=== PATIENT | male | born 1945 | race Caucasian/White ===

== ENCOUNTER 2017-09-05 17:53 | Inpatient (IN) | payer OTHER, MEDICARE ==
[~2017-09-05] VITALS: Ht 167.6 cm; Wt 96.7 kg
[2017-09-05] MEDS ORDERED: DIPHTH/TETANUS/ACEL PERTUSSIS (BOOSTER) 0.5 ML VIAL/PFS IM ONE (18:09)
[2017-09-05 18:10] VITALS: O2SAT 99
[2017-09-05 18:21] LABS: BASOPHIL # 0.1 TH/MM3 (0-0.2); BASOPHIL % 0.7 % (0.0-2.0); EOSINOPHIL # 0.2 TH/MM3 (0-0.4); EOSINOPHIL % 2.2 % (0.0-4.0); HEMATOCRIT 35.9 % (39.0-51.0); HEMOGLOBIN 12.1 GM/DL (13.0-17.0); LYMPH % 20.8 % (9.0-44.0); LYMPHOCYTE # 1.8 TH/MM3 (1.0-4.8); MEAN CELL VOLUME 91.6 FL (80.0-100.0); MEAN CORPUSCULAR HEMOGLOBIN 30.9 PG (27.0-34.0); MEAN CORPUSCULAR HGB CONC 33.7 % (32.0-36.0); MEAN PLATELET VOLUME 9.9 FL (7.0-11.0); MONO % 6.1 % (0.0-8.0); MONOCYTE # 0.5 TH/MM3 (0-0.9); NEUT % 70.2 % (16.0-70.0); PLATELET COUNT 165 TH/MM3 (150-450); RED BLOOD COUNT 3.92 MIL/MM3 (4.50-5.90); RED CELL DISTRIBUTION WIDTH 14.5 % (11.6-17.2); WHITE BLOOD COUNT 8.5 TH/MM3 (4.0-11.0)
[2017-09-05] MEDS ORDERED: IOHEXOL 350 MG/ML 10 ML VIAL (for RAD DIAG) IVCONTRAST ONE (18:31)
[2017-09-05 18:35] LABS: PROTHROMBIN TIME - PATIENT 10.2 SEC (9.8-11.6)
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
[2017-09-05 18:49] VITALS: BP 103/55; PULSE 82; RESP 16; O2SAT 98
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
[2017-09-05] MEDS ORDERED: BP med PO (18:55)
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
[2017-09-05] MEDS ORDERED: LIDOCAINE 1%/EPINEPHrine 1:100,000 SOLN 20 ML VIAL INFIL ONE (19:45)
[2017-09-05] MEDS ORDERED: LIDOCAINE 1%/EPINEPHrine 1:100,000 SOLN 50 ML VIAL ONE (19:50)
[2017-09-05 21:00] VITALS: BP 147/56; PULSE 80; RESP 16; O2SAT 98
[2017-09-05 22:00] VITALS: BP 137/69; PULSE 84; RESP 16; TEMP 98.2; O2SAT 99
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
[2017-09-05] MEDS ORDERED: NALOXONE HCL 0.4 MG/ML AMP IV PUSH PRN (23:00)
[2017-09-05] MEDS ORDERED: hydrALAZINE HCL 20 MG/ML VIAL IV PUSH PRN (23:00)
[2017-09-05] MEDS ORDERED: 1/2 NS + KCL 20 MEQ INJ 1,000 ML IV SCH (23:00)
[2017-09-06] VITALS (13 sets, daily range): BP systolic 111–153; BP diastolic 59–70; PULSE 64–89; RESP 11–18; TEMP 98–98.5; O2SAT 97–100
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
[2017-09-06] MEDS ORDERED: LACTATED RINGER'S 1000 ML INJ 1,000 ML IV ONE (02:45)
[2017-09-06] MEDS ORDERED: ONDANSETRON HCL 4 MG/2 ML VIAL IV PUSH PRN (02:45)
[2017-09-06] MEDS: LACTATED RINGER'S 1000 ML INJ 1,000 ML IV SCH ×3 (02:54→18:45)
[2017-09-06] MEDS: OCTREOTIDE INJ 500 MCG in SODIUM CHLORID 0.9% 500 ML INJ 499.5 ML IV SCH ×2 (02:55→21:50)
[2017-09-06] MEDS ORDERED: OCTREOTIDE INJ 50 MCG/ML AMP IV PUSH ONE (03:00)
[2017-09-06] MEDS: PANTOPRAZOLE SODIUM 40 MG VIAL IV PUSH SCH ×2 (03:01→15:15)
[2017-09-06] MEDS ORDERED: PROMETHAZINE INJ 25 MG/ML VIAL IM ONE (03:15)
[2017-09-06 04:38] LABS: AUTOMATED NEUTROPHIL # 14.1 TH/MM3 (1.8-7.7); BASOPHIL % 0.2 % (0.0-2.0); EOSINOPHIL % 0.1 % (0.0-4.0); HEMATOCRIT 36.5 % (39.0-51.0); LYMPH % 2.9 % (9.0-44.0); LYMPHOCYTE # 0.4 TH/MM3 (1.0-4.8); MEAN CELL VOLUME 90.8 FL (80.0-100.0); MEAN CORPUSCULAR HEMOGLOBIN 29.8 PG (27.0-34.0); MEAN CORPUSCULAR HGB CONC 32.8 % (32.0-36.0); MEAN PLATELET VOLUME 10.1 FL (7.0-11.0); MONO % 5.6 % (0.0-8.0); MONOCYTE # 0.9 TH/MM3 (0-0.9); NEUT % 91.2 % (16.0-70.0); PLATELET COUNT 179 TH/MM3 (150-450); RED BLOOD COUNT 4.02 MIL/MM3 (4.50-5.90); RED CELL DISTRIBUTION WIDTH 14.4 % (11.6-17.2); WHITE BLOOD COUNT 15.5 TH/MM3 (4.0-11.0)
[2017-09-06 05:04] LABS: BICARBONATE 19.6 MEQ/L (21.0-32.0); CALCIUM 8.1 MG/DL (8.5-10.1); CREATININE 1.14 MG/DL (0.60-1.30); MAGNESIUM 1.5 MG/DL (1.5-2.5); PHOSPHORUS 2.8 MG/DL (2.5-4.9)
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
[2017-09-06] MEDS ORDERED: PHENYLEPH/NS 1000 MCG/10 ML SYR IV ONE (12:00)
[2017-09-06] MEDS ORDERED: LIDOCAINE HCL 1% PF 5 ML SYRINGE OTHER ONE (12:00)
[2017-09-06] MEDS ORDERED: SUCCINYLCHOLINE CHLORIDE 100 MG/5 ML SYRINGE IV PUSH ONE (12:00)
[2017-09-06] MEDS ORDERED: PROPOFOL 200 MG/20 ML AMP IV ONE (12:00)
[2017-09-06] MEDS: METOCLOPRAMIDE HCL 10 MG/2 ML VIAL IV PUSH SCH ×2 (15:15→20:12)
[2017-09-06] MEDS: HYDROmorphone HCL PF 0.5 MG/0.5 ML SYRINGE IV PUSH PRN ×2 (15:15→18:18)
[2017-09-07] VITALS (12 sets, daily range): BP systolic 122–167; BP diastolic 60–80; PULSE 52–80; RESP 12–24; TEMP 98.2–98.9; O2SAT 94–99
[2017-09-07] MEDS: ACETAMINOPHEN/HYDROcodone 325 MG/10 MG TAB PO PRN ×3 (03:17→16:00)
[2017-09-07] MEDS: PANTOPRAZOLE SODIUM 40 MG VIAL IV PUSH SCH ×2 (03:18→15:59)
[2017-09-07] MEDS: LACTATED RINGER'S 1000 ML INJ 1,000 ML IV SCH ×3 (03:18→21:42)
[2017-09-07] MEDS: METOCLOPRAMIDE HCL 10 MG/2 ML VIAL IV PUSH SCH ×3 (04:39→21:42)
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
[2017-09-07] MEDS ORDERED: NADOLOL 20 MG TAB PO SCH (16:30)
[2017-09-07] MEDS: OCTREOTIDE INJ 500 MCG in SODIUM CHLORID 0.9% 500 ML INJ 499.5 ML IV SCH (18:24)
[2017-09-07] MEDS: HYDROmorphone HCL PF 0.5 MG/0.5 ML SYRINGE IV PUSH PRN (23:42)
[2017-09-08] VITALS (8 sets, daily range): BP systolic 140–183; BP diastolic 70–81; PULSE 49–61; RESP 13–21; TEMP 98.1–98.7; O2SAT 95–100
[2017-09-08] MEDS: PANTOPRAZOLE SODIUM 40 MG VIAL IV PUSH SCH ×2 (03:36→16:00)
[2017-09-08] MEDS: HYDROmorphone HCL PF 0.5 MG/0.5 ML SYRINGE IV PUSH PRN (03:37)
[2017-09-08] MEDS: LACTATED RINGER'S 1000 ML INJ 1,000 ML IV SCH ×2 (03:38→12:46)
[2017-09-08 04:56] LABS: HEMATOCRIT 29.6 % (39.0-51.0); MEAN CELL VOLUME 90.5 FL (80.0-100.0); MEAN CORPUSCULAR HEMOGLOBIN 30.7 PG (27.0-34.0); MEAN CORPUSCULAR HGB CONC 33.9 % (32.0-36.0); MEAN PLATELET VOLUME 10.1 FL (7.0-11.0); PLATELET COUNT 145 TH/MM3 (150-450); RED BLOOD COUNT 3.27 MIL/MM3 (4.50-5.90); RED CELL DISTRIBUTION WIDTH 13.6 % (11.6-17.2); WHITE BLOOD COUNT 6.6 TH/MM3 (4.0-11.0)
[2017-09-08 05:51] LABS: ALBUMIN 2.4 GM/DL (3.4-5.0); ALKALINE PHOSPHATASE 48 U/L (45-117); ALT (GPT) 18 U/L (12-78); AST (GOT) 30 U/L (15-37); BICARBONATE 26.6 MEQ/L (21.0-32.0); BLOOD UREA NITROGEN 17 MG/DL (7-18); CALCIUM 7.9 MG/DL (8.5-10.1); CHLORIDE 109 MEQ/L (98-107); CREATININE 0.91 MG/DL (0.60-1.30); GLOMERULAR FILTRATION RATE 82 ML/MIN (>89); GLUCOSE,RANDOM 103 MG/DL (74-106); SODIUM (NA) 142 MEQ/L (136-145); TOTAL BILIRUBIN ADULT 0.5 MG/DL (0.2-1.0); TOTAL PROTEIN 5.1 GM/DL (6.4-8.2)
[2017-09-08] MEDS: METOCLOPRAMIDE HCL 10 MG/2 ML VIAL IV PUSH SCH ×3 (06:22→21:31)
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
[2017-09-08] MEDS ORDERED: hydrALAZINE HCL 100 MG TAB PO PRN (08:45)
[2017-09-08] MEDS: hydrALAZINE HCL 50 MG TAB PO SCH ×3 (08:59→21:31)
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
[2017-09-09] VITALS: BP 145/77; PULSE 72; RESP 14; TEMP 98.7; O2SAT 96
[2017-09-09] MEDS: LACTATED RINGER'S 1000 ML INJ 1,000 ML IV SCH (03:20)
[2017-09-09] MEDS: PANTOPRAZOLE SODIUM 40 MG VIAL IV PUSH SCH ×2 (03:20→16:15)
[2017-09-09 04:00] VITALS: BP 163/70; PULSE 60; RESP 17; TEMP 98.4; O2SAT 99
[2017-09-09 06:14] LABS: AUTOMATED NEUTROPHIL # 3.7 TH/MM3 (1.8-7.7); BASOPHIL % 0.9 % (0.0-2.0); EOSINOPHIL # 0.2 TH/MM3 (0-0.4); EOSINOPHIL % 3.9 % (0.0-4.0); HEMATOCRIT 27.1 % (39.0-51.0); HEMOGLOBIN 9.1 GM/DL (13.0-17.0); LYMPH % 15.3 % (9.0-44.0); LYMPHOCYTE # 0.8 TH/MM3 (1.0-4.8); MEAN CELL VOLUME 90.2 FL (80.0-100.0); MEAN CORPUSCULAR HEMOGLOBIN 30.3 PG (27.0-34.0); MEAN CORPUSCULAR HGB CONC 33.6 % (32.0-36.0); MEAN PLATELET VOLUME 9.6 FL (7.0-11.0); MONO % 11.6 % (0.0-8.0); MONOCYTE # 0.6 TH/MM3 (0-0.9); NEUT % 68.3 % (16.0-70.0); PLATELET COUNT 138 TH/MM3 (150-450); RED BLOOD COUNT 3.01 MIL/MM3 (4.50-5.90); RED CELL DISTRIBUTION WIDTH 13.5 % (11.6-17.2); WHITE BLOOD COUNT 5.4 TH/MM3 (4.0-11.0)
[2017-09-09] MEDS: hydrALAZINE HCL 50 MG TAB PO SCH (06:30)
[2017-09-09] MEDS: METOCLOPRAMIDE HCL 10 MG/2 ML VIAL IV PUSH SCH (06:31)
[2017-09-09 06:42] LABS: ALBUMIN 2.2 GM/DL (3.4-5.0); BICARBONATE 24.1 MEQ/L (21.0-32.0); BLOOD UREA NITROGEN 14 MG/DL (7-18); CALCIUM 7.8 MG/DL (8.5-10.1); CHLORIDE 109 MEQ/L (98-107); CREATININE 0.73 MG/DL (0.60-1.30); GLOMERULAR FILTRATION RATE 106 ML/MIN (>89); GLUCOSE,RANDOM 82 MG/DL (74-106); SODIUM (NA) 142 MEQ/L (136-145)
[2017-09-09 06:43] LABS: ALT (GPT) 16 U/L (12-78); AST (GOT) 27 U/L (15-37)
[2017-09-09 06:45] LABS: ALKALINE PHOSPHATASE 64 U/L (45-117); TOTAL BILIRUBIN ADULT 0.6 MG/DL (0.2-1.0); TOTAL PROTEIN 4.4 GM/DL (6.4-8.2)
[2017-09-09 08:00] VITALS: BP 160/76; PULSE 45; RESP 10; TEMP 98.8; O2SAT 100
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
[2017-09-09 12:00] VITALS: BP 165/72; PULSE 52; RESP 18; TEMP 98.4; O2SAT 95
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
[2017-09-09 16:00] VITALS: BP 132/63; PULSE 50; RESP 12; TEMP 99.3; O2SAT 98
[2017-09-09 20:00] VITALS: BP 183/78; PULSE 50; RESP 24; TEMP 98.9; O2SAT 98
[2017-09-09] MEDS: ENALAPRILAT 1.25 MG/ML VIAL IV PUSH PRN (20:58)
[2017-09-10] VITALS (7 sets, daily range): BP systolic 134–186; BP diastolic 64–87; PULSE 40–62; RESP 11–20; TEMP 98.3–98.9; O2SAT 96–98
[2017-09-10] MEDS: cloNIDine HCL 0.1 MG TAB PO PRN ×2 (00:20→09:29)
[2017-09-10] MEDS: PANTOPRAZOLE SODIUM 40 MG VIAL IV PUSH SCH ×2 (04:13→15:03)
[2017-09-10 05:19] LABS: BASOPHIL % 0.7 % (0.0-2.0); EOSINOPHIL # 0.2 TH/MM3 (0-0.4); EOSINOPHIL % 3.8 % (0.0-4.0); HEMATOCRIT 32.4 % (39.0-51.0); HEMOGLOBIN 10.9 GM/DL (13.0-17.0); LYMPH % 17.2 % (9.0-44.0); MEAN CELL VOLUME 89.7 FL (80.0-100.0); MEAN CORPUSCULAR HEMOGLOBIN 30.3 PG (27.0-34.0); MEAN CORPUSCULAR HGB CONC 33.8 % (32.0-36.0); MONOCYTE # 0.6 TH/MM3 (0-0.9); NEUT % 67.3 % (16.0-70.0); PLATELET COUNT 156 TH/MM3 (150-450); RED BLOOD COUNT 3.61 MIL/MM3 (4.50-5.90); RED CELL DISTRIBUTION WIDTH 13.8 % (11.6-17.2); WHITE BLOOD COUNT 5.9 TH/MM3 (4.0-11.0)
[2017-09-10 05:50] LABS: ALBUMIN 2.7 GM/DL (3.4-5.0); AST (GOT) 18 U/L (15-37); BICARBONATE 25.2 MEQ/L (21.0-32.0); BLOOD UREA NITROGEN 19 MG/DL (7-18); CALCIUM 8.1 MG/DL (8.5-10.1); CHLORIDE 109 MEQ/L (98-107); CREATININE 1.06 MG/DL (0.60-1.30); GLOMERULAR FILTRATION RATE 69 ML/MIN (>89); GLUCOSE,RANDOM 92 MG/DL (74-106); SODIUM (NA) 143 MEQ/L (136-145)
[2017-09-10 05:51] LABS: ALT (GPT) 18 U/L (12-78)
[2017-09-10 05:53] LABS: ALKALINE PHOSPHATASE 53 U/L (45-117); TOTAL BILIRUBIN ADULT 0.6 MG/DL (0.2-1.0); TOTAL PROTEIN 5.4 GM/DL (6.4-8.2)
[2017-09-10] MEDS: ACETAMINOPHEN/HYDROcodone 325 MG/10 MG TAB PO PRN (08:52)
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
[2017-09-10] MEDS: ACETAMINOPHEN/HYDROcodone 325 MG/5 MG TAB PO PRN ×2 (15:03→19:20)
--- NOTE | 2017-09-10 23:29 | HHI.NSPN ---
History Chief Complaint: Left arm and wrist pain Interval History 09/10/2017: Patient had reported fall early this morning. Complains of left shoulder arm wrist pain. Exam Results Vital Signs Date Time Temp Pulse Resp B/P (MAP) Pulse Ox O2 Delivery O2 Flow Rate FiO2 09/10/17 20:20 15 09/10/17 20:00 98.5 62 134/64 (87) 98 09/10/17 19:00 Room Air 09/07/17 08:14 21 09/06/17 20:19 2.00 Intake and Output 09/10/17 09/10/17 09/11/17 08:00 16:00 00:00 Intake Total 120 ml 240 ml Output Total 300 ml Balance -180 ml 240 ml Physical Examination Awake and alert Baseline expressive speech deficit Follow simple commands well Positive discomfort left shoulder wrist forearm with active and passive range of motion. Has some weakness left biceps triceps hand grasp and intrinsics although complains of significant discomfort with testing. Guthrie's response absent bilateral No ankle clonus Lab, Micro, Other Results Last 48 hours Impressions Cervical Spine CT 09/10/17 0908 Signed Impressions: CONCLUSION: 1. Stable appearance of the recent left C7 transverse process fracture. 2. No acute fracture or malalignment. 3. Degenerative changes. Radius/Ulna X-Ray 09/10/17 0833 Signed Impressions: CONCLUSION: 1. The radius and ulna are intact. 2. Extensive soft tissue swelling over the olecranon. The elbow appears grossl y intact. If further concern for elbow injury exists then a standard 4 view tra rigoberto elbow series would be recommended. Head CT 09/10/17 0000 Signed Impressions: CONCLUSION: 1. No acute hemorrhage or mass effect. 2. Extensive postsurgical changes and encephalomalacia as well as atrophic lisset nge. Medical Decision Making Impression and Plan Impression: Stable C7 transverse process fracture No definite new cervical spine fracture or upper extremity fracture following fall earlier on 09/10/2017 Plan: Continue therapy Continue collar Transfer bed pending Rodney Boateng MD September 10, 2017 23:29
[2017-09-11] VITALS: BP 148/70; PULSE 48; RESP 14; TEMP 98.8; O2SAT 96
[2017-09-11] MEDS: ACETAMINOPHEN/HYDROcodone 325 MG/5 MG TAB PO PRN ×3 (01:11→14:10)
[2017-09-11] MEDS: PANTOPRAZOLE SODIUM 40 MG VIAL IV PUSH SCH ×2 (03:59→16:41)
[2017-09-11 04:00] VITALS: BP 160/75; PULSE 48; RESP 12; TEMP 98.2; O2SAT 95
[2017-09-11 08:00] VITALS: BP 179/84; PULSE 52; RESP 22; TEMP 98.9; O2SAT 98
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
[2017-09-11 12:00] VITALS: BP 170/78; PULSE 52; RESP 12; TEMP 98.4
[2017-09-11] MEDS: ENALAPRILAT 1.25 MG/ML VIAL IV PUSH PRN (14:28)
[2017-09-11 16:00] VITALS: BP 173/77; PULSE 52; RESP 20; TEMP 98.5
[2017-09-11 20:00] VITALS: BP 179/84; PULSE 52; PULSE 69; RESP 22; TEMP 98.9; O2SAT 98
--- NOTE | 2017-09-11 20:49 | HHI.NSPN ---
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 He is noticing some weakness in the left upper extremity. Exam Results Vital Signs Date Time Temp Pulse Resp B/P (MAP) Pulse Ox O2 Delivery O2 Flow Rate FiO2 09/11/17 16:00 98.5 52 20 173/77 (109) 09/11/17 08:00 98 09/11/17 07:00 Room Air 09/07/17 08:14 21 Intake and Output 09/11/17 09/11/17 09/12/17 08:00 16:00 00:00 Intake Total 120 ml 240 ml Output Total 300 ml 300 ml Balance -180 ml -60 ml Physical Examination Awake and alert Baseline expressive speech deficit Follow simple commands well Positive discomfort left shoulder wrist forearm with active and passive range of motion. He is moving the left arm and forearm and hand a little bit better today with decreased pain. However he appears to have increased weakness distal left upper extremity. On today's examination left deltoid and biceps 5/5 with discomfort. Left triceps wrist flexors and extensors are 0-1/5 with hand intrinsics 1/5, flexor digitorum superficialis and profundus 2/5 Guthrie's response absent bilateral No ankle clonus Medical Decision Making Impression and Plan Impression: Stable C7 transverse process fracture No definite new cervical spine fracture or upper extremity fracture following fall earlier on 09/10/2017 Examination 09/11/2017 reveals significant new left upper extremity motor deficit. Plan: Discussed with the patient's daughter in [facility] on 09/11/2017. Patient has less pain on examination of the left upper extremity today, but examination is now revealing significant increased motor deficit. The deficit includes but is not limited to the C7 distribution. He does continue to have significant swelling at the left olecranon. Possible ulnar nerve contusion. Cannot totally rule out brachial plexopathy or spinal cord contusion at this point. CVA less likely. Need to proceed with MRI of the cervical spine, left shoulder and brachial plexus and brain. Continue therapy Continue collar Transfer bed pending Rodney Boateng MD September 11, 2017 20:49
[2017-09-11] MEDS: ACETAMINOPHEN/HYDROcodone 325 MG/10 MG TAB PO PRN (21:13)
[2017-09-12] VITALS: BP 182/84; PULSE 52; RESP 13; TEMP 99.3; O2SAT 94
[2017-09-12] MEDS: ENALAPRILAT 1.25 MG/ML VIAL IV PUSH PRN ×2 (00:42→07:41)
[2017-09-12] MEDS: cloNIDine HCL 0.1 MG TAB PO PRN ×3 (01:53→16:20)
[2017-09-12 04:00] VITALS: BP 173/82; PULSE 52; RESP 13; TEMP 98.3; O2SAT 94
[2017-09-12] MEDS: PANTOPRAZOLE SODIUM 40 MG VIAL IV PUSH SCH ×3 (05:34→16:19)
[2017-09-12 08:00] VITALS: BP 214/88; PULSE 62; RESP 20; TEMP 98.5; O2SAT 97
[2017-09-12] MEDS: ACETAMINOPHEN/HYDROcodone 325 MG/5 MG TAB PO PRN (11:40)
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
[2017-09-12 12:00] VITALS: BP 178/84; PULSE 63; RESP 18; TEMP 98.5; O2SAT 99
[2017-09-12] MEDS ORDERED: LISINOPRIL 20 MG TAB PO ONE (12:00)
--- NOTE | 2017-09-12 15:11 | RADRPT ---
EXAM DATE: 09/12/2017 3:08 PM EDT AGE/SEX: 72 years / Male INDICATIONS: Right wrist pain. CLINICAL DATA: This is the patient's initial encounter. Patient reports that signs and symptoms have been present for 1 week and indicates a pain score of 6/10. MEDICAL/SURGICAL HISTORY: . stroke None. COMPARISON: No prior [place] exams available for comparison. FINDINGS: Bony structures are intact and in normal alignment. Joints are intact without dislocation or signifi cant arthropathy. Osseous density is normal. Moderate vascular calcifications are evident. Soft tiss ues are unremarkable. No radiopaque foreign bodies seen. CONCLUSION: Negative for fracture. Moderate vascular calcifications. Electronically signed by: Sarmad Jesus MD 09/12/2017 3:10 PM EDT
--- NOTE | 2017-09-12 15:14 | RADRPT ---
EXAM DATE: 09/12/2017 3:02 PM EDT AGE/SEX: 72 years / Male INDICATIONS: Left wrist pain. CLINICAL DATA: This is the patient's initial encounter. Patient reports that signs and symptoms have been present for 1 week and indicates a pain score of 6/10. MEDICAL/SURGICAL HISTORY: . stroke None. COMPARISON: No prior [place] exams available for comparison. FINDINGS: Bony structures are intact and in normal alignment. Joints are intact without dislocation or signifi cant arthropathy. Osseous density is normal mild degenerative changes at the first carpometacarpal j oint.. Moderate vascular calcic locations are noted. Soft tissues are unremarkable. No radiopaque fo reign bodies seen. CONCLUSION: Negative for fracture. Moderate degenerative changes. Moderate vascular calcifications. Electronically signed by: Sarmad Jesus MD 09/12/2017 3:13 PM EDT
[2017-09-12 16:00] VITALS: BP 196/86; PULSE 64; RESP 16; TEMP 97.8; O2SAT 98
[2017-09-12] MEDS: ACETAMINOPHEN/HYDROcodone 325 MG/10 MG TAB PO PRN (16:27)
[2017-09-12 20:00] VITALS: BP 148/70; PULSE 65; RESP 18; TEMP 98.2; O2SAT 97
--- NOTE | 2017-09-12 23:30 | HHI.NSPN ---
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 He is noticing some weakness in the left upper extremity. 09/12/2017: Persistent left upper extremity motor deficit. Unable to obtain MRI because of previous aneurysm clipping. Exam Results Vital Signs Date Time Temp Pulse Resp B/P (MAP) Pulse Ox O2 Delivery O2 Flow Rate FiO2 09/12/17 20:00 98.2 65 18 148/70 (96) 97 09/12/17 07:00 Room Air Intake and Output 09/12/17 09/12/17 09/13/17 08:00 16:00 00:00 Intake Total 180 ml 240 ml Output Total 250 ml Balance 180 ml -10 ml Physical Examination Awake and alert Baseline expressive speech deficit Follow simple commands well Positive discomfort left shoulder wrist forearm with active and passive range of motion. Motor function: Left deltoid and biceps 5/5 with discomfort. Left triceps wrist flexors and extensors are 0-1/5 with hand intrinsics 1/5, flexor digitorum superficialis and profundus 2/5 Guthrie's response absent bilateral No ankle clonus Medical Decision Making Impression and Plan Impression: Stable C7 transverse process fracture No definite new cervical spine fracture or upper extremity fracture following fall earlier on 09/10/2017 Examination 09/11/2017 revealed significant new left upper extremity motor deficit. Plan: Due to inability to obtain MRI of the cervical spine and brachial plexus due to previous aneurysm clipping, need to consider myelogram CT scan cervical spine. Follow-up CT scan head over the weekend to reevaluate for possible CVA. 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 Still with significant left shoulder pain. Brachial plexopathy remains a possibility. Rodney Boateng MD Sep 12, 2017 23:30
[2017-09-12] MEDS ORDERED: LACTATED RINGER'S 1000 ML INJ 1,000 ML IV SCH (23:31)
[2017-09-12] MEDS ORDERED: DIAZEPAM 5 MG TAB PO SCH (23:45)
[2017-09-13] VITALS: BP 130/60; PULSE 59; RESP 18; TEMP 99.6; O2SAT 96
[2017-09-13] MEDS: PANTOPRAZOLE SODIUM 40 MG VIAL IV PUSH SCH ×2 (04:25→16:29)
[2017-09-13] MEDS: ACETAMINOPHEN/HYDROcodone 325 MG/10 MG TAB PO PRN ×3 (05:12→21:23)
[2017-09-13 08:00] VITALS: BP 173/74; PULSE 58; RESP 15; TEMP 97.7; O2SAT 99
[2017-09-13] MEDS: LISINOPRIL 20 MG TAB PO SCH (08:33)
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
--- NOTE | 2017-09-13 11:23 | HHI.NSPN ---
History Interval History Patient reports no change. Offers no complaints Exam Results Vital Signs Date Time Temp Pulse Resp B/P (MAP) Pulse Ox O2 Delivery O2 Flow Rate FiO2 09/13/17 08:00 97.7 58 15 173/74 (107) 99 09/12/17 07:00 Room Air Intake and Output 09/13/17 09/13/17 09/14/17 08:00 16:00 00:00 Intake Total 240 ml 1000 ml Balance 240 ml 1000 ml Physical Examination Patient is alert and awake. Has an expressive aphasia Remains in a [place] J collar. Weakness of the left arm especially distally in the hand Lab, Micro, Other Results CT of the head reviewed no new changes Medical Decision Making Impression and Plan Continued weakness of the left upper extremity especially distally Plan as per Evan Liu MD Sep 13, 2017 11:22
[2017-09-13 12:00] VITALS: BP 161/74; PULSE 61; RESP 16; TEMP 98.3; O2SAT 96
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
[2017-09-13] MEDS ORDERED: PILL SPLITTER OTHER PRN (12:45)
[2017-09-13] MEDS: amLODIPine BESYLATE 5 MG TAB PO SCH (12:53)
[2017-09-13 16:00] VITALS: BP 163/72; PULSE 56; RESP 17; TEMP 98; O2SAT 98
[2017-09-13] MEDS: BACLOFEN 10 MG TAB PO SCH ×2 (16:28→21:23)
[2017-09-13 19:55] VITALS: BP 170/75; PULSE 60; RESP 18; TEMP 98.2; O2SAT 97
[2017-09-13] MEDS: cloNIDine HCL 0.1 MG TAB PO PRN (21:23)
[2017-09-14] VITALS (7 sets, daily range): BP systolic 136–182; BP diastolic 64–84; PULSE 53–63; RESP 16–18; TEMP 97.1–98.6; O2SAT 96–99
[2017-09-14] MEDS: PANTOPRAZOLE SODIUM 40 MG VIAL IV PUSH SCH ×2 (04:17→16:04)
[2017-09-14] MEDS: ACETAMINOPHEN/HYDROcodone 325 MG/10 MG TAB PO PRN (04:18)
[2017-09-14] MEDS: BACLOFEN 10 MG TAB PO SCH ×3 (04:18→23:22)
[2017-09-14] MEDS: cloNIDine HCL 0.1 MG TAB PO PRN ×2 (04:18→18:21)
[2017-09-14 05:23] LABS: HEMATOCRIT 30.4 % (39.0-51.0); HEMOGLOBIN 10.2 GM/DL (13.0-17.0); MEAN CORPUSCULAR HGB CONC 33.7 % (32.0-36.0); MEAN PLATELET VOLUME 9.8 FL (7.0-11.0); PLATELET COUNT 158 TH/MM3 (150-450); RED BLOOD COUNT 3.41 MIL/MM3 (4.50-5.90); WHITE BLOOD COUNT 6.8 TH/MM3 (4.0-11.0)
[2017-09-14 05:45] LABS: CALCIUM 8.1 MG/DL (8.5-10.1); CREATININE 0.89 MG/DL (0.60-1.30)
[2017-09-14] MEDS ORDERED: BISACODYL 10 MG SUPP RECTAL PRN (08:30)
[2017-09-14] MEDS ORDERED: MAGNESIUM HYDROXIDE SUSP 30 ML CUP PO PRN (08:30)
[2017-09-14] MEDS ORDERED: LACTULOSE SYRUP 20 GM/30 ML CUP PO PRN (08:30)
[2017-09-14] MEDS: FUROSEMIDE 40 MG TAB PO SCH (08:49)
[2017-09-14] MEDS: SENNOSIDES 8.6 MG TAB PO PRN (08:49)
[2017-09-14] MEDS: DOCUSATE SODIUM 50 MG/SENNA 8.6 MG TAB PO SCH ×2 (08:49→20:30)
[2017-09-14] MEDS: LISINOPRIL 20 MG TAB PO SCH (08:50)
[2017-09-14] MEDS: amLODIPine BESYLATE 5 MG TAB PO SCH (08:50)
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
[2017-09-14] MEDS: hydrALAZINE HCL 25 MG TAB PO SCH ×2 (16:04→23:22)
--- NOTE | 2017-09-14 17:28 | HHI.NSPN ---
History Interval History Patient reports no change. Offers no complaints Exam Results Vital Signs Date Time Temp Pulse Resp B/P (MAP) Pulse Ox O2 Delivery O2 Flow Rate FiO2 09/14/17 12:00 98.4 55 16 157/70 (99) 97 09/13/17 22:21 Room Air Intake and Output 09/14/17 09/14/17 09/15/17 08:00 16:00 00:00 Intake Total 200 ml Output Total 1050 ml Balance -850 ml Physical Examination Patient is alert and awake. Has an expressive aphasia Remains in a [place] J collar. Weakness of the left arm especially distally in the hand and triceps Medical Decision Making Impression and Plan Continued weakness of the left upper extremity especially distally Plan as per Evan Liu MD Sep 14, 2017 17:28
[2017-09-15] MEDS: PANTOPRAZOLE SODIUM 40 MG VIAL IV PUSH SCH ×2 (03:54→15:02)
[2017-09-15 04:00] VITALS: BP_SYST 138; BP_SYST 142; BP_DIAS 65; BP_DIAS 69; PULSE 55; PULSE 63; RESP 18; TEMP 97.9; TEMP 98.2; O2SAT 100; O2SAT 97
[2017-09-15] MEDS: BACLOFEN 10 MG TAB PO SCH ×3 (06:16→21:48)
[2017-09-15] MEDS: hydrALAZINE HCL 25 MG TAB PO SCH ×3 (06:16→21:48)
[2017-09-15 06:25] VITALS: BP 160/72
[2017-09-15 08:00] VITALS: BP 174/76; PULSE 57; RESP 18; TEMP 98; O2SAT 98
[2017-09-15] MEDS: LISINOPRIL 20 MG TAB PO SCH (09:51)
[2017-09-15] MEDS: DOCUSATE SODIUM 50 MG/SENNA 8.6 MG TAB PO SCH ×2 (09:51→20:29)
[2017-09-15] MEDS: FUROSEMIDE 40 MG TAB PO SCH (09:51)
[2017-09-15] MEDS: ACETAMINOPHEN/HYDROcodone 325 MG/10 MG TAB PO PRN ×3 (09:52→23:20)
[2017-09-15] MEDS: amLODIPine BESYLATE 5 MG TAB PO SCH (09:52)
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
[2017-09-15 12:00] VITALS: BP 172/83; PULSE 66; RESP 18; TEMP 98; O2SAT 96
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
[2017-09-15] MEDS ORDERED: IOHEXOL 300 MG/ML 50 ML BTL (for RAD DIAG) IT ONE (12:43)
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
[2017-09-15 16:55] LABS: HEMOGLOBIN A1C 5.2 % (4.3-6.0)
[2017-09-15 19:50] VITALS: BP 120/56; PULSE 62; RESP 18; TEMP 97.9; O2SAT 98
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
[2017-09-16] VITALS: BP 114/59; PULSE 59; RESP 17; TEMP 99.3; O2SAT 94
[2017-09-16 04:40] VITALS: BP 117/58; PULSE 59; RESP 17; TEMP 99; O2SAT 96
[2017-09-16] MEDS: PANTOPRAZOLE SODIUM 40 MG VIAL IV PUSH SCH ×2 (04:44→15:38)
[2017-09-16 05:13] LABS: AUTOMATED NEUTROPHIL # 4.5 TH/MM3 (1.8-7.7); BASOPHIL # 0.1 TH/MM3 (0-0.2); EOSINOPHIL # 0.3 TH/MM3 (0-0.4); EOSINOPHIL % 3.8 % (0.0-4.0); HEMATOCRIT 32.2 % (39.0-51.0); HEMOGLOBIN 10.8 GM/DL (13.0-17.0); LYMPH % 20.4 % (9.0-44.0); LYMPHOCYTE # 1.5 TH/MM3 (1.0-4.8); MEAN CELL VOLUME 89.4 FL (80.0-100.0); MEAN CORPUSCULAR HEMOGLOBIN 30.1 PG (27.0-34.0); MEAN CORPUSCULAR HGB CONC 33.7 % (32.0-36.0); MEAN PLATELET VOLUME 10.3 FL (7.0-11.0); MONO % 11.7 % (0.0-8.0); MONOCYTE # 0.8 TH/MM3 (0-0.9); NEUT % 63.1 % (16.0-70.0); PLATELET COUNT 165 TH/MM3 (150-450); RED BLOOD COUNT 3.61 MIL/MM3 (4.50-5.90); RED CELL DISTRIBUTION WIDTH 13.8 % (11.6-17.2); WHITE BLOOD COUNT 7.2 TH/MM3 (4.0-11.0)
[2017-09-16] MEDS ORDERED: LACTATED RINGER'S 1000 ML IV PRN (05:15)
[2017-09-16] MEDS ORDERED: POVIDONE IODINE 5% (ANTISEPSIS KIT) 4 APPLICATIONS EACH NARE PRN (05:15)
[2017-09-16] MEDS ORDERED: CHLORHEXIDINE GLUCONATE 2 % 1 PACK (2 CLOTHS) TOPICAL PRN (05:15)
[2017-09-16] MEDS ORDERED: SODIUM CHLORID 0.9% 500 ML IV PRN (05:15)
[2017-09-16 05:52] LABS: BICARBONATE 23.9 MEQ/L (21.0-32.0); CALCIUM 8.4 MG/DL (8.5-10.1); CREATININE 1.05 MG/DL (0.60-1.30)
[2017-09-16] MEDS: hydrALAZINE HCL 25 MG TAB PO SCH ×3 (06:01→22:00)
[2017-09-16] MEDS: BACLOFEN 10 MG TAB PO SCH ×3 (06:02→22:00)
[2017-09-16 08:00] VITALS: BP 134/63; PULSE 61; RESP 18; TEMP 97.9; O2SAT 97
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
[2017-09-16] MEDS: LISINOPRIL 20 MG TAB PO SCH (08:42)
[2017-09-16] MEDS: FUROSEMIDE 40 MG TAB PO SCH (08:42)
[2017-09-16] MEDS: amLODIPine BESYLATE 5 MG TAB PO SCH (08:42)
[2017-09-16] MEDS: DOCUSATE SODIUM 50 MG/SENNA 8.6 MG TAB PO SCH ×2 (08:42→21:00)
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
[2017-09-16 12:00] VITALS: BP 127/72; PULSE 71; RESP 18; TEMP 98; O2SAT 98
[2017-09-16] MEDS ORDERED: LIDOCAINE HCL 1% PF 5 ML SYRINGE OTHER ONE (12:00)
[2017-09-16] MEDS ORDERED: PROPOFOL 200 MG/20 ML AMP IV ONE (12:00)
[2017-09-16] MEDS ORDERED: ePHEDrine/NS 25 MG/5 ML SYRINGE IV ONE (12:00)
[2017-09-16] MEDS ORDERED: ceFAZolin INJ 1,000 MG VIAL IV ONE (12:00)
[2017-09-16] MEDS ORDERED: DEXAMETHASONE SOD PHOS 4 MG/ML VIAL IV ONE (12:00)
[2017-09-16] MEDS ORDERED: PHENYLEPHRINE HCL 10 MG/ML VIAL IV ONE (12:00)
[2017-09-16] MEDS ORDERED: PHENYLEPH/NS 1000 MCG/10 ML SYR IV ONE (12:00)
[2017-09-16] MEDS ORDERED: ONDANSETRON ODT 4 MG TAB ONE (12:00)
[2017-09-16] MEDS ORDERED: ROCURONIUM INJ 100 MG/10 ML VIAL IV ONE (12:00)
[2017-09-16] MEDS: ACETAMINOPHEN/HYDROcodone 325 MG/5 MG TAB PO PRN (13:04)
--- NOTE | 2017-09-16 14:03 | OTSOAPIP ---
RECEIVED OCCUPATIONAL THERAPY CONSULTS FROM DR. BARNETT AND DR. SANDOVAL. PATIENT IS SCHEDULED TO HAVE SURGERY THIS DATE FOR C6-7 ANTERIOR DISCECTOMY AND INTERBODY FUSION WITH ALLOGRAFT BONE AND ANTERIOR INSTRUMENTATION. WILL PLAN TO EVALUATE PATIENT S/P SURGERY NEXT DAY. INTERDISCIPLINARY COMMUNICATION: REVIEWED ELECTRONIC MEDICAL RECORD, SPOKE WITH VIPUL SHARPE Therapist: Kelsie Tucker, OTR/L Signature on file
--- NOTE | 2017-09-16 15:22 | EKG ---
Date Performed: 09/16/2017 Time Performed: 04:23:04 PTAGE: 72 years EKG: Sinus bradycardia. Possible septal infarct - age undetermined Abnormal ECG NO PREVIOUS TRACING DOCTOR: Kelsi Tavares Interpretating Date/Time 09/16/2017 15:21:12
[2017-09-16] MEDS ORDERED: MORPHINE SULFATE 4 MG/ML INJ IV PUSH ONE (15:45)
[2017-09-16 16:00] VITALS: BP_SYST 108; BP_SYST 116; BP_DIAS 57; BP_DIAS 62; PULSE 100; PULSE 63; RESP 16; RESP 18; TEMP 98; TEMP 98.6; O2SAT 95; O2SAT 96
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
[2017-09-16] MEDS ORDERED: THROMBIN (TOPICAL) 5,000 UNIT VIAL ONE (20:35)
[2017-09-16] MEDS ORDERED: LIDOCAINE 1%/EPINEPHrine 1:100,000 SOLN 30 ML VIAL ONE (20:35)
[2017-09-16] MEDS ORDERED: GELFOAM SIZE 100 ONE (20:36)
[2017-09-16] MEDS ORDERED: GENTAMICIN SULFATE 80 MG/2 ML VIAL ONE (20:36)
[2017-09-16] MEDS ORDERED: ACETAMINOPHEN 1000 MG/100 ML 100 ML IV ONE (20:49)
[2017-09-16] MEDS ORDERED: ceFAZolin 2 GM PREMIX 50 ML ONE (21:38)
[2017-09-16] MEDS ORDERED: PROPOFOL 500 MG/50 ML INJ 50 ML ONE (21:58)
[2017-09-16] MEDS ORDERED: PROPOFOL 500 MG/50 ML INJ 150 ML ONE (23:25)
[2017-09-17] MEDS ORDERED: ceFAZolin INJ 1,000 MG VIAL ONE (00:39)
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
[2017-09-17] MEDS ORDERED: MIDAZOLAM HCL 2 MG/2 ML VIAL ONE (01:52)
[2017-09-17] MEDS ORDERED: DO NOT ADM ANY ANTICOAGULANT DRUGS PRN (02:15)
[2017-09-17] MEDS: 1/2 NS + KCL 20 MEQ INJ 1,000 ML IV SCH ×2 (02:23→15:45)
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
[2017-09-17 03:20] VITALS: BP 134/63; PULSE 66; RESP 18; TEMP 98.2; O2SAT 98
[2017-09-17] MEDS: PANTOPRAZOLE SODIUM 40 MG VIAL IV PUSH SCH ×2 (04:14→15:44)
[2017-09-17] MEDS: hydrALAZINE HCL 25 MG TAB PO SCH ×3 (06:07→20:07)
[2017-09-17] MEDS: BACLOFEN 10 MG TAB PO SCH ×3 (06:08→20:07)
[2017-09-17 08:07] VITALS: BP 127/64; PULSE 68; RESP 17; TEMP 97.1; O2SAT 99
[2017-09-17] MEDS: DOCUSATE SODIUM 50 MG/SENNA 8.6 MG TAB PO SCH ×2 (09:02→20:07)
[2017-09-17] MEDS: amLODIPine BESYLATE 5 MG TAB PO SCH (09:02)
[2017-09-17] MEDS: LISINOPRIL 20 MG TAB PO SCH (09:02)
[2017-09-17] MEDS: ACETAMINOPHEN/HYDROcodone 325 MG/5 MG TAB PO PRN ×2 (09:17→17:06)
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
[2017-09-17 12:00] VITALS: BP 130/65; PULSE 75; RESP 18; TEMP 97.1; O2SAT 100
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
--- NOTE | 2017-09-17 15:14 | PD.WCN.NOT ---
Wound Consult Description: Received wound management consult for buttocks, buttocks breakdown, please eval for air flow mattress from Doctor Macedo Communicated with: LILLI Macias and call placed to Doctor Macedo Recommendation: 1.Please cleanse bilateral buttock gently with remedy barrier wipes do not rub across open areas. 2.Apply skin barrier film to intact purple non blanchable skin and apply Calazime skin protectant paste to open skin. Leave open to air. 3.Position patient from R side to L side every 2 hours and PRN for offloading of pressure from buttock and coccyx area. Patient may lay on back when with P.T. or with meals. 4.Obtain [place] [employer] bed from environmental or if not available, order K4 bed from [employer]. 5. Do not elevate the head of bed more than 30 degrees except for with P.T. or with meals. 6. Do not use cotton pads on low airloss mattress. Additional Information: Patient seen on for evaluation of buttocks breakdown around 1400. Patient assessed with GLOBAL TECHNICAL WRITER at the bedside, patient was turned toward the R side for wound assessment. Patinet is noted with area on bilateral buttock, and gluteal cleft with non blanchable purple discoloration that is opening to partial thickness skin loss.Non blanchable purple discoloration is a deep tissue injury. DTI measures ~8cm x ~9cm . DTI is open on R buttock to partial thickness skin loss measuring ~4cm x ~4cm x ~<0.1cm. Skin is opening on gluteal cleft and L buttock. Applied Cavilon skin barrier film to intact purple non blanchable discoloration and applied Calazime skin protectant paste to partial thickness skin loss and gluteal cleft area. DTI was left open to air. Patient is laying on two staggered ultrasorb pads and cotton underpad . Cotton under pad was removed. and patient was positioned to R side with pillows in place for support. Sarah Corbin CRN Sep 17, 2017 15:14
[2017-09-17 16:00] VITALS: BP 103/56; PULSE 77; RESP 18; TEMP 97.6; O2SAT 96
[2017-09-17 16:26] VITALS: O2SAT 100
[2017-09-17 20:00] VITALS: BP 105/58; PULSE 72; RESP 20; TEMP 98.1; O2SAT 100
[2017-09-17] MEDS: SENNOSIDES 8.6 MG TAB PO PRN (20:07)
[2017-09-17] MEDS: ACETAMINOPHEN/HYDROcodone 325 MG/10 MG TAB PO PRN (21:29)
[2017-09-18] VITALS (7 sets, daily range): BP systolic 91–123; BP diastolic 54–65; PULSE 65–70; RESP 17–18; TEMP 97.5–98.3; O2SAT 95–99
[2017-09-18] MEDS: 1/2 NS + KCL 20 MEQ INJ 1,000 ML IV SCH ×3 (02:01→20:08)
[2017-09-18] MEDS: PANTOPRAZOLE SODIUM 40 MG VIAL IV PUSH SCH ×2 (03:10→17:53)
[2017-09-18] MEDS: amLODIPine BESYLATE 5 MG TAB PO SCH ×2 (05:19→08:59)
[2017-09-18 05:56] LABS: AUTOMATED NEUTROPHIL # 7.5 TH/MM3 (1.8-7.7); BASOPHIL # 0.1 TH/MM3 (0-0.2); BASOPHIL % 0.7 % (0.0-2.0); EOSINOPHIL # 0.2 TH/MM3 (0-0.4); EOSINOPHIL % 1.8 % (0.0-4.0); HEMATOCRIT 28.7 % (39.0-51.0); HEMOGLOBIN 9.7 GM/DL (13.0-17.0); LYMPH % 14.1 % (9.0-44.0); LYMPHOCYTE # 1.5 TH/MM3 (1.0-4.8); MEAN CELL VOLUME 88.9 FL (80.0-100.0); MEAN CORPUSCULAR HGB CONC 33.7 % (32.0-36.0); MEAN PLATELET VOLUME 10.8 FL (7.0-11.0); MONO % 11.9 % (0.0-8.0); MONOCYTE # 1.2 TH/MM3 (0-0.9); NEUT % 71.5 % (16.0-70.0); PLATELET COUNT 167 TH/MM3 (150-450); RED BLOOD COUNT 3.23 MIL/MM3 (4.50-5.90); RED CELL DISTRIBUTION WIDTH 13.6 % (11.6-17.2); WHITE BLOOD COUNT 10.5 TH/MM3 (4.0-11.0)
[2017-09-18] MEDS: hydrALAZINE HCL 25 MG TAB PO SCH ×3 (06:00→20:06)
[2017-09-18] MEDS: BACLOFEN 10 MG TAB PO SCH ×3 (06:00→20:06)
[2017-09-18 06:22] LABS: BICARBONATE 26.6 MEQ/L (21.0-32.0); CALCIUM 8.3 MG/DL (8.5-10.1); CREATININE 0.86 MG/DL (0.60-1.30)
[2017-09-18] MEDS: ACETAMINOPHEN/HYDROcodone 325 MG/10 MG TAB PO PRN (06:28)
[2017-09-18] MEDS: DOCUSATE SODIUM 50 MG/SENNA 8.6 MG TAB PO SCH ×2 (08:59→20:06)
[2017-09-18] MEDS: LISINOPRIL 20 MG TAB PO SCH (08:59)
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
[2017-09-18] MEDS: ACETAMINOPHEN/HYDROcodone 325 MG/5 MG TAB PO PRN ×2 (13:44→17:53)
[2017-09-19] VITALS: BP 120/57; PULSE 61; RESP 18; TEMP 98.4; O2SAT 95
[2017-09-19] MEDS: ACETAMINOPHEN/HYDROcodone 325 MG/10 MG TAB PO PRN ×3 (02:08→10:18)
[2017-09-19] MEDS: PANTOPRAZOLE SODIUM 40 MG VIAL IV PUSH SCH ×2 (02:08→15:21)
[2017-09-19 04:00] VITALS: BP 131/68; PULSE 73; RESP 18; TEMP 98.7; O2SAT 99
[2017-09-19] MEDS: hydrALAZINE HCL 25 MG TAB PO SCH ×3 (06:00→20:52)
[2017-09-19] MEDS: BACLOFEN 10 MG TAB PO SCH ×3 (06:12→20:52)
[2017-09-19] MEDS: DOCUSATE SODIUM 50 MG/SENNA 8.6 MG TAB PO SCH ×2 (07:57→20:52)
[2017-09-19] MEDS: LISINOPRIL 20 MG TAB PO SCH (07:57)
[2017-09-19] MEDS: amLODIPine BESYLATE 5 MG TAB PO SCH (07:57)
[2017-09-19 08:00] VITALS: BP 108/75; PULSE 72; RESP 18; TEMP 98.9; O2SAT 96
[2017-09-19 08:03] LABS: AUTOMATED NEUTROPHIL # 7.1 TH/MM3 (1.8-7.7); BASOPHIL # 0.1 TH/MM3 (0-0.2); BASOPHIL % 0.9 % (0.0-2.0); EOSINOPHIL # 0.3 TH/MM3 (0-0.4); EOSINOPHIL % 2.7 % (0.0-4.0); HEMOGLOBIN 9.7 GM/DL (13.0-17.0); LYMPH % 13.7 % (9.0-44.0); LYMPHOCYTE # 1.4 TH/MM3 (1.0-4.8); MEAN CELL VOLUME 88.3 FL (80.0-100.0); MEAN CORPUSCULAR HEMOGLOBIN 29.6 PG (27.0-34.0); MEAN CORPUSCULAR HGB CONC 33.5 % (32.0-36.0); MEAN PLATELET VOLUME 10.6 FL (7.0-11.0); MONO % 12.5 % (0.0-8.0); MONOCYTE # 1.3 TH/MM3 (0-0.9); NEUT % 70.2 % (16.0-70.0); PLATELET COUNT 193 TH/MM3 (150-450); RED BLOOD COUNT 3.29 MIL/MM3 (4.50-5.90); RED CELL DISTRIBUTION WIDTH 13.6 % (11.6-17.2); WHITE BLOOD COUNT 10.1 TH/MM3 (4.0-11.0)
[2017-09-19] MEDS ORDERED: LISI-515 PO (10:12)
[2017-09-19] MEDS ORDERED: HYDR-3799 PO (10:12)
[2017-09-19] MEDS ORDERED: MAGN30S PO (10:12)
[2017-09-19] MEDS ORDERED: HYDR-3516 PO (10:12)
[2017-09-19] MEDS ORDERED: BACL10TA PO (10:12)
[2017-09-19] MEDS ORDERED: AMLO5 PO (10:12)
[2017-09-19] MEDS ORDERED: DOCU100C15 PO (10:12)
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
[2017-09-19 12:00] VITALS: BP 110/58; PULSE 98; RESP 18; TEMP 98.1; O2SAT 96
[2017-09-19] MEDS: 1/2 NS + KCL 20 MEQ INJ 1,000 ML IV SCH (14:28)
[2017-09-19 16:00] VITALS: BP 109/60; PULSE 67; RESP 18; TEMP 98; O2SAT 97
[2017-09-19 20:00] VITALS: BP 139/68; PULSE 71; RESP 20; TEMP 97.6; O2SAT 98
[2017-09-19] MEDS: ACETAMINOPHEN/HYDROcodone 325 MG/5 MG TAB PO PRN (20:57)
[2017-09-20] VITALS: BP 116/55; PULSE 75; RESP 20; TEMP 98.5; O2SAT 95
[2017-09-20] MEDS: 1/2 NS + KCL 20 MEQ INJ 1,000 ML IV SCH ×3 (02:41→19:40)
[2017-09-20 04:00] VITALS: BP 136/65; PULSE 76; RESP 20; TEMP 98.7; O2SAT 96
[2017-09-20] MEDS: PANTOPRAZOLE SODIUM 40 MG VIAL IV PUSH SCH ×2 (05:00→15:56)
[2017-09-20] MEDS: hydrALAZINE HCL 25 MG TAB PO SCH ×3 (05:01→20:47)
[2017-09-20] MEDS: BACLOFEN 10 MG TAB PO SCH ×3 (05:01→20:47)
[2017-09-20] MEDS: ACETAMINOPHEN/HYDROcodone 325 MG/5 MG TAB PO PRN ×2 (05:26→11:18)
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
[2017-09-20 08:00] VITALS: BP_SYST 118; BP_SYST 128; BP_DIAS 58; BP_DIAS 64; PULSE 70; PULSE 83; RESP 18; RESP 19; TEMP 98; TEMP 98.4; O2SAT 96
[2017-09-20] MEDS: LISINOPRIL 20 MG TAB PO SCH (09:22)
[2017-09-20] MEDS: DOCUSATE SODIUM 50 MG/SENNA 8.6 MG TAB PO SCH ×2 (09:22→20:47)
[2017-09-20] MEDS: amLODIPine BESYLATE 5 MG TAB PO SCH (09:22)
[2017-09-20 11:10] VITALS: BP 124/60; PULSE 88; RESP 16; TEMP 97.5; O2SAT 97
--- NOTE | 2017-09-20 14:06 | HHI.NSPN ---
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 He is noticing some weakness in the left upper extremity. 09/12/2017: Persistent left upper extremity motor deficit. Unable to obtain MRI because of previous aneurysm clipping. 09/15/2017: CT myelogram completed today. There appears to be mild rotational subluxation at the C6-7 level with at least moderate canal stenosis. 09/20/2017: Neurologic function left upper and lower extremity continues to improve. Case management working on usp. Exam Results Vital Signs Date Time Temp Pulse Resp B/P (MAP) Pulse Ox O2 Delivery O2 Flow Rate FiO2 09/20/17 11:10 97.5 88 16 124/60 (81) 97 09/20/17 11:10 Room Air 09/17/17 16:26 2.00 Intake and Output 09/20/17 09/20/17 09/21/17 08:00 16:00 00:00 Intake Total 480 ml Output Total 1050 ml Balance -570 ml Physical Examination GENERAL: The patient is awake & alert in bed watching TV. His affect is essentially normal & he readily interacts. He appears comfortable and is not in any distress. HEENT: Normocephalic, atraumatic. NECK: In [place] J cervical collar. No midline cervical spine tenderness. Anterior neck surgical incision w/intact dressing, MUSCULOSKELETAL: No extremity pain with range of motion NEUROLOGICAL: Awake & alert, oriented to person & place. The patient exhibits moderate to severe expressive aphasia and some receptive aphasia. He indicates relatively intact sensation throughout the left upper and lower extremity Left-sided motor function is as follows: Biceps 5, triceps absent, hand intrinsics absent, extensors 2/5. Left quadriceps 2+/5, extensor hallucis longus 2/5, gastrocsoleus 3/5 Medical Decision Making Impression and Plan Impression: Status post C6-7 ACDF for fracture-subluxation with quadriplegia. Left upper and lower extremity motor function and sensory function are slowly but steadily improving. Plan: Findings were discussed at length with the patient and his daughter in the room today. Continuing OT, PT. Case management working on usp placement. Rodney Boateng MD Sep 20, 2017 14:06
[2017-09-20 16:12] VITALS: BP 139/64; PULSE 77; RESP 17; TEMP 97.7; O2SAT 97
[2017-09-20 20:00] VITALS: BP 119/60; PULSE 81; RESP 20; TEMP 98; O2SAT 98
[2017-09-20] MEDS: ACETAMINOPHEN/HYDROcodone 325 MG/10 MG TAB PO PRN (20:50)
[2017-09-21] VITALS: BP 135/71; PULSE 77; RESP 20; TEMP 98.6; O2SAT 98
[2017-09-21 04:00] VITALS: BP 136/65; PULSE 74; RESP 20; TEMP 98.6; O2SAT 97
[2017-09-21] MEDS: ACETAMINOPHEN/HYDROcodone 325 MG/10 MG TAB PO PRN ×4 (05:25→20:48)
[2017-09-21] MEDS: hydrALAZINE HCL 25 MG TAB PO SCH ×3 (05:26→20:48)
[2017-09-21] MEDS: PANTOPRAZOLE SODIUM 40 MG VIAL IV PUSH SCH ×2 (05:26→15:25)
[2017-09-21] MEDS: BACLOFEN 10 MG TAB PO SCH ×3 (05:26→20:48)
[2017-09-21 08:00] VITALS: BP 91/54; PULSE 73; RESP 17; TEMP 98.1; O2SAT 96
[2017-09-21] MEDS: LISINOPRIL 20 MG TAB PO SCH (08:17)
[2017-09-21] MEDS: amLODIPine BESYLATE 5 MG TAB PO SCH (08:17)
[2017-09-21] MEDS: DOCUSATE SODIUM 50 MG/SENNA 8.6 MG TAB PO SCH ×2 (08:25→20:48)
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
[2017-09-21 12:28] VITALS: BP 108/59; PULSE 89; RESP 17; TEMP 97.3; O2SAT 97
[2017-09-21] MEDS: 1/2 NS + KCL 20 MEQ INJ 1,000 ML IV SCH ×2 (12:36→20:40)
[2017-09-21 15:50] VITALS: BP 121/57; PULSE 75; RESP 17; TEMP 98; O2SAT 99
[2017-09-21 20:50] VITALS: BP 128/67; PULSE 71; RESP 17; TEMP 98; O2SAT 97
[2017-09-22 00:10] VITALS: BP 129/60; PULSE 66; RESP 17; TEMP 98.2; O2SAT 97
[2017-09-22] MEDS: ACETAMINOPHEN/HYDROcodone 325 MG/10 MG TAB PO PRN ×3 (05:12→17:26)
[2017-09-22] MEDS: BACLOFEN 10 MG TAB PO SCH ×3 (05:12→22:03)
[2017-09-22] MEDS: hydrALAZINE HCL 25 MG TAB PO SCH ×3 (05:12→22:03)
[2017-09-22] MEDS: PANTOPRAZOLE SODIUM 40 MG VIAL IV PUSH SCH ×2 (05:13→17:23)
[2017-09-22 05:31] VITALS: BP 143/67; PULSE 75; RESP 16; TEMP 98.3; O2SAT 96
[2017-09-22 08:00] VITALS: BP 130/63; PULSE 77; RESP 19; TEMP 98.1; O2SAT 97
[2017-09-22] MEDS: amLODIPine BESYLATE 5 MG TAB PO SCH (08:27)
[2017-09-22] MEDS: LISINOPRIL 20 MG TAB PO SCH (08:28)
[2017-09-22] MEDS: DOCUSATE SODIUM 50 MG/SENNA 8.6 MG TAB PO SCH ×2 (08:28→22:03)
[2017-09-22 12:00] VITALS: BP 100/67; PULSE 73; RESP 18; TEMP 98.1; O2SAT 98
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
--- NOTE | 2017-09-22 12:08 | PD.WCN.NOT ---
Wound Consult Description: Received wound management consult for buttocks, buttocks breakdown, please eval for air flow mattress from Doctor Hellen Communicated with: VIPUL soares Recommendation: 1.Please cleanse bilateral buttock gently with remedy barrier wipes do not rub across open areas. 2.Apply skin barrier film to intact purple non blanchable skin and apply Calazime skin protectant paste to open skin. Leave open to air. 3.Position patient from R side to L side every 2 hours and PRN for offloading of pressure from buttock and coccyx area. Patient may lay on back when with P.T. or with meals. 4.Obtain Blount Airapy bed from environmental or if not available, order K4 bed from [employer]. 5. Do not elevate the head of bed more than 30 degrees except for with P.T. or with meals. 6. Do not use cotton pads on low airloss mattress. Additional Information: Patient seen on for follow up of DTI opening to partial thickness skin loss. Patient assessed with VIPUL Rico at the bedside, patient was turned toward the R side for wound assessment. Patinet is noted with area on bilateral buttock , and gluteal cleft that is now mostly open, ~10% of wound still remains covered by non blanchable purple discolored skin that is loose and not approximated .Entire wound is still measuring ~8cm x ~9cm . R buttock that was previously noted open to partial thickness skin loss now presents with light brown colored tissue and measuring ~4cm x ~4cm x ~<0.1cm. Skin is opened on gluteal cleft and L buttock revealing pink/ light purple tissue with surrounding loose skin that is not approximated.DTI is now opened to full thickness skin loss. Now an unstageable pressure injury. Will reassess next week for new dressings recommendations. Recommend to continue wound care as recommended above for now. Please continue to keep patient turned every 2 hours from L side keeping pressure off buttock area. Please Vocera wound care nurse for wound deterioration. Sarah Corbin [facility] Sep 22, 2017 12:08
[2017-09-22] MEDS: 1/2 NS + KCL 20 MEQ INJ 1,000 ML IV SCH (14:56)
[2017-09-22 16:00] VITALS: BP 111/58; PULSE 76; RESP 18; TEMP 98.2; O2SAT 98
[2017-09-22 20:00] VITALS: BP 96/50; PULSE 70; RESP 18; TEMP 98.1; O2SAT 100
[2017-09-23 00:01] VITALS: BP 126/59; PULSE 74; RESP 18; TEMP 98.5; O2SAT 96
[2017-09-23] MEDS: 1/2 NS + KCL 20 MEQ INJ 1,000 ML IV SCH ×3 (02:59→21:43)
[2017-09-23] MEDS: PANTOPRAZOLE SODIUM 40 MG VIAL IV PUSH SCH ×2 (03:59→14:34)
[2017-09-23] MEDS: ACETAMINOPHEN/HYDROcodone 325 MG/10 MG TAB PO PRN ×4 (03:59→22:42)
[2017-09-23 04:00] VITALS: BP 135/65; PULSE 77; RESP 18; TEMP 97.9; O2SAT 97
[2017-09-23] MEDS: BACLOFEN 10 MG TAB PO SCH ×3 (05:54→21:41)
[2017-09-23] MEDS: hydrALAZINE HCL 25 MG TAB PO SCH ×3 (05:54→21:39)
[2017-09-23 08:00] VITALS: BP 102/62; PULSE 81; RESP 16; TEMP 98.8; O2SAT 98
[2017-09-23] MEDS: LISINOPRIL 20 MG TAB PO SCH (09:00)
[2017-09-23] MEDS: amLODIPine BESYLATE 5 MG TAB PO SCH (09:00)
[2017-09-23] MEDS: DOCUSATE SODIUM 50 MG/SENNA 8.6 MG TAB PO SCH ×3 (09:00→21:39)
[2017-09-23 12:00] VITALS: BP 84/50; PULSE 72; RESP 16; TEMP 97.3; O2SAT 98
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
[2017-09-23 16:00] VITALS: BP 107/60; PULSE 71; RESP 16; TEMP 97.6; O2SAT 100
[2017-09-23 20:00] VITALS: BP 136/65; PULSE 69; RESP 18; TEMP 98.4; O2SAT 99
[2017-09-24 00:01] VITALS: BP 118/60; PULSE 75; RESP 18; TEMP 98.2; O2SAT 97
[2017-09-24] MEDS: ACETAMINOPHEN/HYDROcodone 325 MG/10 MG TAB PO PRN (03:10)
[2017-09-24] MEDS: PANTOPRAZOLE SODIUM 40 MG VIAL IV PUSH SCH (03:11)
[2017-09-24 04:00] VITALS: BP 117/72; PULSE 73; RESP 18; TEMP 98.5; O2SAT 96
[2017-09-24] MEDS: BACLOFEN 10 MG TAB PO SCH (05:51)
[2017-09-24] MEDS: hydrALAZINE HCL 25 MG TAB PO SCH (05:51)
[2017-09-24 06:00] LABS: HEMATOCRIT 30.6 % (39.0-51.0); HEMOGLOBIN 10.2 GM/DL (13.0-17.0); MEAN CELL VOLUME 87.1 FL (80.0-100.0); MEAN CORPUSCULAR HEMOGLOBIN 28.9 PG (27.0-34.0); MEAN CORPUSCULAR HGB CONC 33.2 % (32.0-36.0); MEAN PLATELET VOLUME 10.5 FL (7.0-11.0); PLATELET COUNT 295 TH/MM3 (150-450); RED BLOOD COUNT 3.51 MIL/MM3 (4.50-5.90); RED CELL DISTRIBUTION WIDTH 13.9 % (11.6-17.2); WHITE BLOOD COUNT 10.2 TH/MM3 (4.0-11.0)
[2017-09-24 06:06] LABS: BICARBONATE 24.2 MEQ/L (21.0-32.0); CALCIUM 8.7 MG/DL (8.5-10.1); CREATININE 0.87 MG/DL (0.60-1.30)
[2017-09-24 08:00] VITALS: BP 104/62; PULSE 69; RESP 18; TEMP 97.5; O2SAT 98
[2017-09-24] MEDS: amLODIPine BESYLATE 5 MG TAB PO SCH (08:26)
[2017-09-24] MEDS: LISINOPRIL 20 MG TAB PO SCH (08:26)
[2017-09-24] MEDS: DOCUSATE SODIUM 50 MG/SENNA 8.6 MG TAB PO SCH (08:26)
== END 2017-09-24 10:43 | DRG 29 ==
LOC: NEPI 17:53 → NEDA 19:32 → OBSVTOIN 19:52 → EDBD 19:52 → N03A 22:36 → N06A 09-12 15:58
PROVIDERS: ADMIT Hospitalist; ATTEND Hospitalist
PROC: 0DJ08ZZ Inspection of Upper Intestinal Tract, Via Natural or Artificial Opening Endoscopic (ICD-10-PCS; 2017-09-06)
PROC: B01B1ZZ Fluoroscopy of Spinal Cord using Low Osmolar Contrast (ICD-10-PCS; 2017-09-15)
PROC: 0PS Upper Bones, Reposition (ICD-10-PCS; 2017-09-16)
PROC: 0RB30ZZ Excision of Cervical Vertebral Disc, Open Approach (ICD-10-PCS; 2017-09-16)
PROC: 0PB30ZZ Excision of Cervical Vertebra, Open Approach (ICD-10-PCS; 2017-09-16)
PROC: 00QT0ZZ Repair Spinal Meninges, Open Approach (ICD-10-PCS; 2017-09-16)
PROC: 0T9B70Z Drainage of Bladder with Drainage Device, Via Natural or Artificial Opening (ICD-10-PCS; 2017-09-16)
PROC: 0RG10A0 Fusion of Cervical Vertebral Joint with Interbody Fusion Device, Anterior Approach, Anterior Column, Open Approach (ICD-10-PCS; principal; 2017-09-16 21:07)
DX: S14.157A Other incomplete lesion at C7 level of cervical spinal cord, initial encounter (principal); R47.01 Aphasia; L89.310 Pressure ulcer of right buttock, unstageable; K92.0 Hematemesis; I85.00 Esophageal varices without bleeding; G93.89 Other specified disorders of brain; G96.0 Cerebrospinal fluid leak; M48.02 Spinal stenosis, cervical region; M50.223 Other cervical disc displacement at C6-C7 level; S12.690A Other displaced fracture of seventh cervical vertebra, initial encounter for closed fracture; Z86.79 Personal history of other diseases of the circulatory system; V48.5XXA Car driver injured in noncollision transport accident in traffic accident, initial encounter; Y92.410 Unspecified street and highway as the place of occurrence of the external cause; Y93.89 Activity, other specified; R73.03 Prediabetes; I10 Essential (primary) hypertension; S00.03XA Contusion of scalp, initial encounter; S80.211A Abrasion, right knee, initial encounter; F10.129 Alcohol abuse with intoxication, unspecified; Y90.6 Blood alcohol level of 120-199 mg/100 ml; M25.78 Osteophyte, vertebrae; R11.12 Projectile vomiting; M79.642 Pain in left hand; S01.511A Laceration without foreign body of lip, initial encounter; D72.829 Elevated white blood cell count, unspecified; D64.9 Anemia, unspecified; R68.84 Jaw pain; M25.512 Pain in left shoulder; K22.2 Esophageal obstruction; K20.9 Esophagitis, unspecified; R00.1 Bradycardia, unspecified; R33.9 Retention of urine, unspecified; S30.0XXA Contusion of lower back and pelvis, initial encounter; K59.00 Constipation, unspecified
CPT/HCPCS: 62302; 70450; 71045; 71260; 72020; 72040; 72125; 72170; 73090; 73110; 74177; 76000; 80048; 80053; 80307; 83036; 83735; 84100; 85025; 85027; 85610; 85730; 86850; 86900; 86901; 87641; 90471; 90715; 93005; 94150; C1713; C9113; J0131; J0330; J0690; J1100; J1170; J1580; J2250; J2270; J2354; J2370; J2405; J2550; J2765; J3010; J7040; J7120; L0172; Q9967